=== PATIENT | male | born 1975 | race Caucasian/White ===

== ENCOUNTER 2021-07-19 11:52 | Emergency (ER) | payer SELFPAY ==
[~2021-07-19] VITALS: Ht 165.1 cm; Wt 111.8 kg
[2021-07-19 12:01] VITALS: BP 167/99
--- NOTE | 2021-07-19 12:05 | NUR ---
PT TO ER BED 7, EKG AT BEDSIDE
--- NOTE | 2021-07-19 12:26 | NUR ---
Radiology at bedside.
--- NOTE | 2021-07-19 12:30 | NUR ---
PA Burnett at bedside evaluating patient.
[2021-07-19] MEDS ORDERED: KETOROLAC 30 MG/ML VIAL IM ONE (12:45)
--- NOTE | 2021-07-19 13:15 | NUR ---
IM MEDS GIVEN-NADR AT THIS TIME
[2021-07-19 13:50] VITALS: BP 142/95
--- NOTE | 2021-07-19 14:00 | NUR ---
Patient is resting in bed, vital signs stable. All needs met.
[2021-07-19] MEDS ORDERED: CYCL-711 PO (14:21)
[2021-07-19] MEDS ORDERED: NAPR-54 PO (14:21)
--- NOTE | 2021-07-19 14:40 | NUR ---
Patient discharged with v/s stable. Written and verbal after care instructions given. Patient alert, oriented and verbalized understanding of instructions. Ambulatory with steady gait. All questions addressed prior to discharge. ID band removed. Patient advised to follow up with PMD. Rx of CFlexeril and Naproxen given. Opportunity to ask questions provided and answered. Work note handed to patient.
--- NOTE | 2021-07-19 14:41 | NUR ---
Chart checked and completed. The patient's care was reviewed and supervised by Klarissa Nails RN.
== END 2021-07-19 14:40 | disposition home or self-care (01) ==
LOC: MED 11:52
DX: R07.89 Other chest pain (principal); R03.0 Elevated blood-pressure reading, without diagnosis of hypertension; Z79.899 Other long term (current) drug therapy; Z79.1 Long term (current) use of non-steroidal anti-inflammatories (NSAID)
CPT/HCPCS: 71045; 93005; 96372; 99283; J1885; Q0092

== ENCOUNTER 2022-04-17 16:22 | Emergency (ER) | payer SELFPAY ==
[~2022-04-17] VITALS: Ht 154.9 cm; Wt 108.4 kg
[~2022-04-17 16:22] MED LIST: CYCL-711 PO; NAPR-54 PO
[2022-04-17 16:28] VITALS: BP 143/100
--- NOTE | 2022-04-17 16:40 | NUR ---
HERE FOR RIGHT ANKLE SWELLING, STATES A BOX FELL OVER HIS LEG ABOUT A MONTH AGO RIGHT LOWER LEG IS SWOLLEN, HYPERPIGMENTED AND SKIN PEELING.
[2022-04-17] MEDS ORDERED: cephALEXin 500 MG CAP PO ONE (18:45)
--- NOTE | 2022-04-17 19:27 | NUR ---
Patient resting in bed, A/Ox4, chest rise and fall symmetrical, no s/s of distress, patient on monitor. Addendum: 04/17/22 at 1928 by [id number] Patient resting in bed, A/Ox4, chest rise and fall symmetrical, no s/s of distress, patient on monitor, tech at bedside.
--- NOTE | 2022-04-17 20:05 | NUR ---
Patient resting in bed, A/Ox4, chest rise and fall symmetrical, no s/s of distress, patient on monitor.
[2022-04-17] MEDS ORDERED: CEPH-588 PO (21:00)
[2022-04-17 21:11] VITALS: BP 122/85
== END 2022-04-17 21:05 | disposition home or self-care (01) ==
LOC: MED 16:22
DX: L03.115 Cellulitis of right lower limb (principal)
CPT/HCPCS: 93971; 99285; Q0092

== ENCOUNTER 2023-08-22 17:00 | Emergency (ER) | payer SELFPAY ==
[~2023-08-22] VITALS: Ht 160 cm; Wt 95.7 kg
[~2023-08-22 17:00] MED LIST changes: +CEPH-588 PO; +NAPR-337 PO; -NAPR-54 PO
[2023-08-22 17:34] VITALS: BP 144/98; PULSE 75; RESP 18; TEMP 98.2; O2SAT 98
[2023-08-22] MEDS ORDERED: IBUP-2213 PO (17:52)
[2023-08-22] MEDS ORDERED: CEPH-588 PO (17:52)
[2023-08-22] MEDS ORDERED: SULF-59 PO (17:52)
== END 2023-08-22 18:00 | disposition home or self-care (01) ==
LOC: MED 17:00
DX: J34.0 Abscess, furuncle and carbuncle of nose (principal); Z79.899 Other long term (current) drug therapy
CPT/HCPCS: 99284

== ENCOUNTER 2023-08-24 16:44 | Emergency (ER) | payer OTHER ==
[~2023-08-24] VITALS: Ht 160 cm; Wt 95.3 kg
[~2023-08-24 16:44] MED LIST changes: +IBUP-2213 PO; +SULF-59 PO
[2023-08-24 16:50] VITALS: BP 148/89; PULSE 68; RESP 18; TEMP 97.7; O2SAT 98
== END 2023-08-24 19:11 | disposition home or self-care (01) ==
LOC: MED 16:44
DX: J34.0 Abscess, furuncle and carbuncle of nose (principal); Z48.00 Encounter for change or removal of nonsurgical wound dressing; Z79.899 Other long term (current) drug therapy
CPT/HCPCS: 99282